=== PATIENT | female | born 1975 | race African-American/Black ===

== ENCOUNTER → 2016-11-24 | Outpatient (CLI) | payer OTHER ==
[~2016-11-24] VITALS: Ht 165.1 cm; Wt 102.5 kg
[~2016-11-24] MED LIST: COZAAR 50 MG TA50 M2 PO; DICLOFENAC SOD50 M1 PO; FLEXERIL PO; GLUCOPHAGE XR500 MG PO; HYDROCHLOROTH12.5 M1 PO; HYDROCODON-ACE1 EACH PO; HYDROCODONE-AP1 EAC6 PO; LIPITOR 20 MG T20 M1 PO; MELOXICAM7.5 MG PO; NUCYNTA50 MG PO; PHENERGAN 25 MG25 M1 PO; RIZATRIPTAN5 M1 PO; TRAMADOL 50 MG50 MG PO; VENTOLIN HFA 1818 GM INH; VITAMIN D 5050000 I1; VITAMIN D 5050000 I1 PO
--- NOTE | ~2016-11-24 | HPC ---
[address] [place] [address] PAIN MANAGEMENT CONSULTATION Name: WILLARD ACUÑAN Room #: REG MARVIN Iftikhar#: [id number] Admission: 11/24/16 Attend Phys: Abner Pickens DO Discharge: Date of : 77 Report #: [id number] THIS REPORT FOR: //name// CC: Abner Arvizu [facility] DATE OF SERVICE: 11/24/2016 REFERRING PHYSICIAN: Dr. Lennox Arvizu. CHIEF COMPLAINT: Bilateral foot pain. HISTORY OF PRESENT ILLNESS: As you know, the patient is a 40-year-old female who returns today in followup visit with continued bilateral foot pain. She was originally referred to our service by her educational technology coordinator, Dr. Arvizu for ongoing foot pain. She apparently has undergone surgery, but this is yet to improve symptoms of pain she has been experiencing. She continues to utilize Nucynta on a p.r.n. basis, returning in followup visit requesting refill of this medication. The last visit, we saw the patient was 05/25/2016. She states she has been in her typical state of health with no changes in her medical history. She is denying side effects to medication, does find the medication beneficial when necessary. ALLERGIES: CEPHALEXIN. CURRENT MEDICATIONS: Vitamin D 50,000 units per week, albuterol 2 puffs q. 4 hours p.r.n., metformin XR 500 mg once a day, rizatriptan 5 mg p.r.n., Nucynta 50 mg every 8 hours p.r.n. for pain, cyclobenzaprine 10 mg p.r.n., losartan 50 mg per day, promethazine 25 mg twice a day p.r.n. nausea, vomiting. PHYSICAL EXAMINATION: VITAL SIGNS: Blood pressure 144/99, pulse 100, respiratory rate 16, unlabored, patient 99% on room air. Height 5 feet 5 inches tall, weight 226 pounds, BMI calculated at 37.6. GENERAL: Well-developed, well-nourished, well-hydrated, morbidly obese 40-year-old female appearing her stated age. Pain is rated around 6-7/10. HEENT: Normocephalic, atraumatic. Pupils equal, round, reactive to light. Extraocular muscles are intact. Sclerae nonicteric without injection. NEUROLOGIC: Cranial nerves 2-12 are grossly intact. Speech fluent. EXTREMITIES: Show no clubbing, no cyanosis, no edema. MUSCULOSKELETAL: The patient has palpatory tenderness over the left foot greater than the right. There does not appear to be any changes in the skin color or texture. Temperature is equal when comparing right lower extremity to the left. Weightbearing causes intensification of left heel [place] [address] PAIN MANAGEMENT CONSULTATION Name: WILLARD ACUÑAN Room #: REG [facility] Iftikhar#: [id number] Admission: 11/24/16 Attend Phys: Abner Pickens DO Discharge: Date of : 77 Report #: [id number] ASSESSMENT: 1. Bilateral foot pain. 2. Plantar fasciitis. 3. Chronic intractable pain. PLAN: 1. The patient has returned today in followup visit requesting refill on medications. The patient has not been to our clinic since April 2016. She is taking the Nucynta on an as needed basis and feels it is beneficial. The patient had a very long discussion today about ongoing therapy. At present, the patient has been utilizing her medications appropriately, though I believe that continuation of this therapy may be limited in its capability of providing pain. I strongly suggest the patient return to see her educational technology coordinator for her evaluation. Pain that she is experiencing is not complex regional pain syndrome. This appears to be a mechanical issue and should be amenable to orthotic changes and even potential surgical options. I do strongly suggest she return to see Dr. Arvizu in regards to bilateral foot pain. 2. The patient had a very long discussion about the fact that a good portion of her pain is mechanical in origin. Based on this, I would recommend the patient begin a concerted effort at weight loss. As you are aware, the patient has a BMI of 37.6, weighing 226 pounds, standing 5 feet 5 tall. This extra weight is causing greater strain upon the bilateral feet and this is exacerbating her symptoms. I have discussed this with the patient today. Weight loss is a major priority in this patient's case reducing her weight will reduce the strain on the feet and reduce her overall pain. The patient's optimal weight should be somewhere between 120 and 140. That is a 80 pound weight loss to reach a typical BMI for a 5 feet 5 individual. The patient needs to make a concerted effort at weight reduction to reduce her overall pain. 3. The patient was provided a prescription of Nucynta 50 mg dose 1 tab p.o. q. 12 hours p.r.n. for pain, I have given the patient #40, releases of today, 4 weeks from today and 8 weeks from today, 3 months' worth of medication. The patient was advised to take the medication only as directed, not to take the medication prophylactically. 4. We will see the patient back in followup visit in 3 months. Again, we strongly suggest a followup with Dr. Arvizu and a concerted effort at weight loss, both of which should provide improved analgesia. By: [id number] Abner Pickens DO /nt
[2016-11-24 09:17] VITALS: BP 144/99
== END | disposition home or self-care (01) ==
LOC: PAIN 07:17
DX: M79.672 Pain in left foot (principal); M79.671 Pain in right foot; M72.2 Plantar fascial fibromatosis; G89.29 Other chronic pain

== ENCOUNTER → 2017-03-22 | Outpatient (CLI) | payer OTHER ==
[~2017-03-22] VITALS: Ht 165.1 cm; Wt 102.1 kg
--- NOTE | ~2017-03-22 | HPC ---
[facility] [place] [address] PAIN MANAGEMENT CONSULTATION Name: GUADALUPE ACUÑA Room #: REG MARVIN Nunez.#: [id number] Admission: 03/22/17 Attend Phys: Abner Pickens DO Discharge: Date of : 77 Report #: [id number] THIS REPORT FOR: //name// CC: Abner Arvizu Leah DATE OF SERVICE: 03/22/2017 DATE OF SERVICE: 03/22/2017. REFERRING PHYSICIAN: Dr. Lennox Arvizu. CHIEF COMPLAINT: Bilateral foot pain. HISTORY OF PRESENT ILLNESS: As you know, the patient is a pleasant 41-year-old female who returns today in followup visit with continued bilateral foot pain. The patient was referred to our service by her crosscutter, Dr. Arvizu for ongoing foot pain despite surgical interventions. She returns today in followup visit stating pain level of 5/10 today, states majority of the pain is located on the left plantar surface, but there is equal amount of pain on the right plantar surface. The patient indicates pain is chronic. She describes pain as sharp, exacerbated with standing, walking, improves with sitting, heat, cold compresses and medications. She returns today in followup visit for medication management, stating she is receiving good benefit with its use. ALLERGIES: CEPHALEXIN, BACTRIM. CURRENT MEDICATIONS: Nucynta, vitamin D, hydrocodone, albuterol, promethazine, losartan, cyclobenzaprine, rizatriptan and metformin. SOCIAL HISTORY: The patient denies tobacco, alcohol, IV or illicit drug use. She is working. She is unaccompanied today. IMAGING: No new imaging available. PHYSICAL EXAMINATION: VITAL SIGNS: Blood pressure 132/91, pulse 98, respiratory rate 14, unlabored. The patient is 98% on room air, height 5 feet 5 inches tall, weight 225 pounds, BMI calculated 37.4. GENERAL: Well-developed, well-nourished, well-hydrated, morbidly obese 41-year-old female appearing stated age. Pain is rated at 5-10. HEENT: Normocephalic, atraumatic. Pupils equal, round, reactive to light. Extraocular muscles are intact. Speech is fluent. EXTREMITIES: Show no clubbing, no cyanosis, no edema. MUSCULOSKELETAL: There is again palpatory tenderness over the plantar surface [address] [address] PAIN MANAGEMENT CONSULTATION Name: GUADALUPE ACUÑA Room #: REG MARVIN Iftikhar#: [id number] Admission: 03/22/17 Attend Phys: Abner Pickens DO Discharge: Date of : 77 Report #: [id number] of the left foot greater than right. Weightbearing causes intensification of bilateral foot pain. There is no noticeable changes in temperature or skin color that might indicate complex regional pain syndrome. ASSESSMENT: 1. Bilateral foot pain. 2. Plantar fasciitis. 3. Chronic intractable pain. PLAN: 1. The patient returns today in followup visit for medication management. The patient reports good efficacy with medications and wishes to continue the current therapy. She indicates pain level lumbar 5/10 when she is active, pain is better, improves with rest, relaxation and these medications provided to our services. 2. The patient was provided a prescription of Nucynta 50 mg dose 1 tab p.o. b.i.d. I have given the patient #40 tablets, this is a month worth of medication. She will take these as needed. She is given prescriptions of today, 4 weeks from today, 8 weeks from today. 3. The patient will return to our clinic in 3 months for medication therapy, earlier for interventional treatments. <ELECTRONICALLY SIGNED> By: Abner Pickens DO 03/25/17 1359 [id number] Abner Pickens DO /nt
[2017-03-22 08:22] VITALS: BP 132/91
== END | disposition home or self-care (01) ==
LOC: PAIN 07:02
DX: M79.672 Pain in left foot (principal); M79.671 Pain in right foot; G89.29 Other chronic pain; M72.2 Plantar fascial fibromatosis

== ENCOUNTER → 2017-08-24 | Outpatient (CLI) | payer OTHER ==
[~2017-08-24] VITALS: Ht 165.1 cm; Wt 106.1 kg
--- NOTE | ~2017-08-24 | HPC ---
[facility] [address] [place] [address] PAIN MANAGEMENT CONSULTATION Name: WILLARD ACUÑAN Room #: REG MARVIN Iftikhar#: [id number] Admission: 08/24/17 Attend Phys: Abner Pickens DO Discharge: Date of : 77 Report #: [id number] THIS REPORT FOR: //name// CC: Abner Arvizu DPM DATE OF SERVICE: 08/24/2017 CHIEF COMPLAINT: Bilateral foot pain. HISTORY OF PRESENT ILLNESS: As you know, the patient is a very pleasant 41-year-old female who returns today in followup visit with continued bilateral foot pain. She was referred originally to our service by her file system installer, Dr. Arvizu, for ongoing foot pain despite multiple surgical interventions. She returns today stating the cold weather has exacerbated symptoms and she has been taking her medication more frequently. The last time we saw the patient was in February and she was doing well at that time, but the cold has made her pain worse; now level of 7/10; states pain is exacerbated with standing and walking; improves with sitting and heat as well as medications. She returns today in followup visit, denying any new injury or new trauma to her feet that may have led to increasing pain. She is denying any changes in medical history since our last visit. ALLERGIES: CEPHALEXIN AND BACTRIM. CURRENT MEDICATIONS: Nucynta 50 mg twice a day, vitamin D 50,000 units a week, albuterol 2 puffs q. 4 hours p.r.n., metformin XR 500 mg once a day, rizatriptan 5 mg p.r.n., losartan 50 mg per day, Phenergan 25 mg p.r.n. SOCIAL HISTORY: The patient denies tobacco, alcohol, IV or illicit drug use. She is working, not receiving workmen's compensation, unaccompanied today. IMAGING: No new imaging is available. PHYSICAL EXAMINATION: VITAL SIGNS: Blood pressure 140/92, pulse 83, respiratory rate 20 and unlabored. The patient is 100% on room air. Height 5 feet 5 inches tall, weight 234 pounds, BMI calculated at 38.9. GENERAL: Well-developed, well-nourished, well-hydrated exogenously obese 41-year-old female appearing her stated age, placing current pain score at 7/10. HEENT: Normocephalic, atraumatic. Pupils equal, round, reactive to light. Speech remains fluent. EXTREMITIES: Show no clubbing, no cyanosis, no edema. MUSCULOSKELETAL: Lower extremity strength appears equal and symmetrical 5/5, intact to light touch from L1 through S2 dermatomes. Weightbearing causes [address] [address] PAIN MANAGEMENT CONSULTATION Name: WILLARD ACUÑAN Room #: REG CLBryant Nunez.#: [id number] Admission: 08/24/17 Attend Phys: Abner Pickens DO Discharge: Date of : 77 Report #: [id number] intensification of bilateral foot pain, mainly across the mid portion of the foot. No noticeable changes in skin color or texture again today. Plantar surface appears tender to palpation, left greater than right. ASSESSMENT: 1. Bilateral foot pain. 2. Bilateral plantar fasciitis. 3. Chronic intractable pain. PLAN: 1. The patient has returned today in followup visit having noted increasing pain with cold temperatures that began earlier in July. The patient indicates pain has intensified with these cold temperatures and more activities at home including the holidays. She has returned requesting refill on medications. She was last seen in our clinic in February and received 3 months' worth of medication, may those last all the way until this date. She returns today requesting refill of medications stating she is receiving good benefit when needed. 2. The patient was provided prescription of Nucynta 50 mg dose 1 tab p.o. b.i.d., I have given the patient #60 tablets, 1 month worth of medication. I have given her prescriptions for release of today, 4 weeks from today, 8 weeks from today for a total of 3 months' worth of therapy. 3. The patient was advised to utilize medication as she has prior, utilizing it only for when pain is intensified, not to rely on the medication prophylactically. 4. We will see the patient back in followup visit in approximately 3 months for ongoing medical therapy. We are pleased to see she has done well with Nucynta and we will continue this therapy. <ELECTRONICALLY SIGNED> By: Abner Pickens DO 08/26/17 1110 [id number] Abner Pickens DO /nt
[2017-08-24 08:12] VITALS: BP 140/92
== END ==
LOC: PAIN 06:34
DX: M72.2 Plantar fascial fibromatosis (principal); G89.29 Other chronic pain

== ENCOUNTER → 2018-04-19 | Outpatient (CLI) | payer OTHER ==
[~2018-04-19] VITALS: Ht 165.1 cm; Wt 107.7 kg
--- NOTE | ~2018-04-19 | HPC ---
[facility] [place] [address] PAIN MANAGEMENT CONSULTATION Name: WILLARD ACUÑAN Room #: REG MARVIN CaitlynAdan.#: [id number] Admission: 04/19/18 Attend Phys: Abner Pickens DO Discharge: Date of : 77 Report #: [id number] THIS REPORT FOR: //name// CC: Abner Arvizu Leah DATE OF SERVICE: 04/19/2018 CHIEF COMPLAINT: Bilateral foot pain. HISTORY OF PRESENT ILLNESS: As you know, the patient is a very pleasant 42-year-old female who returns today in followup visit with continued bilateral foot pain. She was originally referred to our service by her criminal justice department chair, Dr. Arvizu for ongoing foot pain despite multiple surgical interventions. We started the patient on medication management in the form of tapentadol, which has been very beneficial. She is indicating pain typically is rated around 5/10 at its worst, which is a significant improvement of about 60-70%. She returns today in followup visit requesting refill on medications. She states her pain is sharp and throbbing. States pain is exacerbated with standing and walking, improves with sitting and heat compresses. She returns for medication management. ALLERGIES: CEPHALEXIN AND BACTRIM. CURRENT MEDICATIONS: Nucynta 50 mg twice a day, vitamin D 50,000 units per week, albuterol 2 puffs q. 4 hours p.r.n., metformin XR 500 mg once a day, rizatriptan 5 mg p.r.n., losartan 50 mg per day and Phenergan 25 mg per day. SOCIAL HISTORY: The patient denies tobacco, alcohol, IV or illicit drug use. She is working, not receiving workmen's compensation, unaccompanied today. IMAGING: No new imaging available. PHYSICAL EXAMINATION: VITAL SIGNS: Blood pressure 138/96, pulse is 97, respiratory rate 18 and unlabored. The patient is 98% on room air. Height 5 feet 5 inches tall, weight 237.4 pounds, BMI calculated 39.5. GENERAL: Well-developed, well-nourished, well-hydrated 42-year-old female appearing her stated age. She is placing pain score today at around 5/10. HEENT: Normocephalic and atraumatic. Pupils are equal, round and reactive to light. EXTREMITIES: Show no clubbing, no cyanosis and no edema. MUSCULOSKELETAL: Lower extremity strength is symmetrical 5/5, intact to light touch from L1 through S2 dermatomes. Rising from seated position cause intensification of bilateral foot pain. Walking any distance causes increase in [facility] [address] [place] [address] PAIN MANAGEMENT CONSULTATION Name: GUADALUPE ACUÑA Room #: REG MARVIN Buitrago#: [id number] Admission: 04/19/18 Attend Phys: Abner Pickens DO Discharge: Date of : 77 Report #: [id number] bilateral foot pain mainly across the mid portion of the foot. No noticeable skin color changes or texture changes or nail growth changes that would be concerning of complex regional pain syndrome. ASSESSMENT: 1. Bilateral foot pain. 2. Bilateral plantar fasciitis. 3. Chronic intractable pain. PLAN: 1. The patient returns today in followup visit indicating medications are working beneficially for pain control. She is now placing pain score 5/10 at the worst. This is a significant improvement from our initial visit of 10/10. She is very pleased with response to medication this in conjunction with her new shoes have been significantly effective in improving overall pain. She is continuing to wear the shoes on a daily basis and is noticing good benefit from plantar fascitis standpoint and from a padding standpoint reducing her overall pain. We encouraged the patient to utilize these shoes as much as possible and we will refill her medications today. 2. The patient was provided a prescription of tramadol 50 mg dose 1 tab p.o. b.i.d., #60, releases of today, 4 weeks from today, 8 weeks from today, 3 months' worth of medication. The patient denies any side effects to medication. 3. We reviewed the fact that opiate medications are being used to provide analgesia adequate to support activities of daily living, not attempting to achieve a specific pain score on the 0-10 Visual Analog Scale. The current opiate medications are providing sufficient analgesia to allow the patient to participate in activities of daily living. The patient is not exhibiting any aberrant behavior suggestive of drug diversion. The patient is not having any adverse reactions to medications. The patient is not suffering from daytime somnolence or mental acuity changes. The patient is managing opiate-induced constipation with appropriate [id number]-enzxqpx agents and dietary considerations. The patient was counseled on concern for caution with operating a motor vehicle while using opiate medications. A physical exam was performed and the patient's functional status was evaluated. All patients with back pain were advised against the bed rest greater than 4 days and were advised to return to normal activities. Pain score assessment was noted and the treatment plan was reviewed with the patient. All current medications, both prescribed and OTC were reviewed and reconciled on the electronic medical record. Tobacco screening was accomplished and smoking cessation was advised when indicated. BMI was noted and diet/exercise modification was recommended for all patients following outside normal parameters. I reviewed with the patient today their responsibilities to safeguard prescription medications, reviewed their responsibility to utilize medications only as prescribed by the physician. They are to seek and receive pain medications only from 1 physician group ([facility]). They are to use [facility] [address] [place] [address] PAIN MANAGEMENT CONSULTATION Name: WILLARD ACUÑAN Room #: REG MARVIN Iftikhar#: [id number] Admission: 04/19/18 Attend Phys: Abner Pickens DO Discharge: Date of : 77 Report #: [id number] 1 pharmacy and keep the clinic informed if they change pharmacies. Their responsibilities include making followup visits in a timely fashion and to avoid abrupt discontinuation of medication usage. Their responsibilities further include bringing their medications (bottles from the pharmacy with residual pills) to the visit for possible confirmation of pill counts and the patient understands it is their responsibility to submit to random drug screens to ensure both that the medications prescribed are present, and that no other controlled substances are present. All prescriptions provided today were generated electronically. 4. The patient will return to our clinic in 3 months for medication therapy. By: [id number] Abner Pickens DO /nt
[2018-04-19 14:26] VITALS: BP 138/96
== END ==
LOC: PAIN 08:01
DX: M79.671 Pain in right foot (principal); M79.672 Pain in left foot; M72.2 Plantar fascial fibromatosis; G89.4 Chronic pain syndrome; Z79.899 Other long term (current) drug therapy

== ENCOUNTER → 2018-08-08 | Outpatient (CLI) | payer OTHER ==
[~2018-08-08] VITALS: Ht 165.1 cm; Wt 106.8 kg
--- NOTE | ~2018-08-08 | HPC ---
[facility] [place] [address] PAIN MANAGEMENT CONSULTATION Name: GUADALUPE ACUÑA Room #: REG MARVIN Nunez.#: [id number] Admission: 08/08/18 Attend Phys: Abner Pickens DO Discharge: Date of : 77 Report #: [id number] THIS REPORT FOR: //name// CC: Abner Arvizu DPM DATE OF SERVICE: 08/08/2018 PRIMARY CARE PHYSICIAN: Dr. Luciana Bennett. CHIEF COMPLAINT: Bilateral foot pain. HISTORY OF PRESENT ILLNESS: As you know, the patient is a very pleasant 42-year-old female returning in followup visit with continued bilateral foot pain. She was referred to our clinic by her space control agent after surgical intervention was ineffective at alleviating her bilateral foot pain. Apparently, there was difficulty with obtaining reinsertion of the plantar fascia based on the patient's recollection. The patient was started on medication management with the idea that ultimately surgical options would improve her symptoms and she would be able to come off medication. Unfortunately, the patient indicates that there is no surgical option from the Podiatry standpoint. She does have an appointment with orthopedic surgeons to discuss her case further. She returns today in followup visit requesting refill on medication. She is placing pain score 5/10, states her pain is sharp and throbbing in sensation, exacerbated with standing, walking, cold weather and damp weather, improves with heat and cold compresses, sitting and medications. She returns requesting refill on medications, denying any side effects with their use. ALLERGIES: CEPHALEXIN AND BACTRIM. CURRENT MEDICATIONS: Nucynta 50 mg p.o. b.i.d. p.r.n. pain, albuterol 2 puffs q. 4 hours p.r.n., metformin 500 mg once a day, rizatriptan 5 mg p.r.n. migraines, losartan 50 mg per day, promethazine 25 mg per day. SOCIAL HISTORY: The patient denies tobacco, alcohol, IV or illicit drug use. She is working, not receiving workmen's compensation, unaccompanied today. IMAGING: No new imaging available. PHYSICAL EXAMINATION: VITAL SIGNS: Blood pressure 114/92, pulse 94, respiratory rate 16 and unlabored. The patient is 100% on room air. Height 5 feet 5 inches tall, weight 235.4 pounds, BMI calculated 39.2. [address] [address] PAIN MANAGEMENT CONSULTATION Name: GUADALUPE ACUÑA Room #: REG CLI [facility]#: [id number] Admission: 08/08/18 Attend Phys: Abner Pickens DO Discharge: Date of : 77 Report #: [id number] GENERAL: Well-developed, well-nourished, well-hydrated exogenously obese 42-year-old female appearing stated age, placing current pain score at 5/10. HEENT: Normocephalic, atraumatic. Pupils equal, round, reactive to light. EXTREMITIES: Show no clubbing, no cyanosis, and no edema. MUSCULOSKELETAL: Lower extremity strength symmetrical at 5/5, intact to light touch from L1 through S2 dermatomes. Rising from a seated position once again intensifies bilateral foot pain and walking any distance causes increase in overall pain. The pain is noted in mid portion of the foot. ASSESSMENT: 1. Bilateral foot pain. 2. Bilateral plantar fasciitis. 3. Chronic intractable pain. PLAN: 1. The patient returns today in followup visit requesting refill on medications. She feels medications are working beneficially for pain control. She is denying side effects of sleepiness, disorientation, confusion, mental slowing or constipation with their use. She returns requesting refill on medications at this time. We reviewed the fact that opiate medications are being used to provide analgesia adequate to support activities of daily living, not attempting to achieve a specific pain score on the 0-10 Visual Analog Scale. The current opiate medications are providing sufficient analgesia to allow the patient to participate in activities of daily living. The patient is not exhibiting any aberrant behavior suggestive of drug diversion. The patient is not having any adverse reactions to medications. The patient is not suffering from daytime somnolence or mental acuity changes. The patient is managing opiate-induced constipation with appropriate upjy-npw-pbwprqu agents and dietary considerations. The patient was counseled on concern for caution with operating a motor vehicle while using opiate medications. A physical exam was performed and the patient's functional status was evaluated. All patients with back pain were advised against the bed rest greater than 4 days and were advised to return to normal activities. Pain score assessment was noted and the treatment plan was reviewed with the patient. All current medications, both prescribed and OTC were reviewed and reconciled on the electronic medical record. Tobacco screening was accomplished and smoking cessation was advised when indicated. BMI was noted and diet/exercise modification was recommended for all patients following outside normal parameters. I reviewed with the patient today their responsibilities to safeguard prescription medications, reviewed their responsibility to utilize medications only as prescribed by the physician. They are to seek and receive pain [address] [address] PAIN MANAGEMENT CONSULTATION Name: GUADALUPE ACUÑA Room #: REG MARVIN Buitrago#: [id number] Admission: 08/08/18 Attend Phys: Abner Pickens DO Discharge: Date of : 77 Report #: [id number] medications only from 1 physician group ( [facility]). They are to use 1 pharmacy and keep the clinic informed if they change pharmacies. Their responsibilities include making followup visits in a timely fashion and to avoid abrupt discontinuation of medication usage. Their responsibilities further include bringing their medications (bottles from the pharmacy with residual pills) to the visit for possible confirmation of pill counts and the patient understands it is their responsibility to submit to random drug screens to ensure both that the medications prescribed are present, and that no other controlled substances are present. All prescriptions provided today were generated electronically. 2. The patient was provided prescription of Nucynta 50 mg dose 1 tab p.o. b.i.d. I have given the patient #60 tablets, releasing today, 4 weeks from today, 8 weeks from today, 3 months' worth of medication. 3. The patient will contact our clinic once she has evaluation from Orthopedics in regards to her bilateral foot pain and possible surgical options. Apparently, she has discussed this with her space control agent who indicates there are no further surgeries they can perform or treatments that they can perform that will improve symptoms. She is going to be following up with Orthopedic Surgery and will contact our clinic once she has completed this consultation. 4. We will see the patient back in followup visit in 3 months for ongoing medical therapy if necessary. By: [id number] Abner Pickens, DO /nt
== END ==
LOC: PAIN 06:53
DX: M79.671 Pain in right foot (principal); M79.672 Pain in left foot; M72.2 Plantar fascial fibromatosis; G89.4 Chronic pain syndrome; Z79.899 Other long term (current) drug therapy

== ENCOUNTER → 2019-01-03 | Outpatient (CLI) | payer OTHER ==
[~2019-01-03] VITALS: Ht 165.1 cm; Wt 108.7 kg
[2019-01-03 09:27] VITALS: BP 150/90
--- NOTE | 2019-01-03 09:58 | NUR ---
Pain Clinic Assessment: 1. History of Osteoarthritis: Not Applicable History of Rheumatoid Arthritis: Not Applicable 2. Height: 5 ft. 5 in. 165.1 cm. Weight: 239.6 lb. oz. 108.682 kg. Patient's BMI: 39.9 3. Vital Signs: BP: 150/90 Pulse: 94 Resp: 20 Temp: 02 Sat: 99 ECG Mon: 4. Pain Intensity: 9 5. Fall Risk: Dizziness: N Needs help standing or walking: N Fallen in the last 3 months: N Fall risk comments: 6. Patient on Blood Thinner: None 7. History of Hypertension: Y 8. Opioid Therapy greater than 6 weeks: Y Opiate Contract Signed: 08/24/17 9. Risk Assessment Tool Provided: low risk 10. Functional Assessment Tool: 11. Recreational Drug Use: Never Drug Type: Tobacco Use: Never Smoker Tobacco Type: Amount or Packs/day: How Many Years: Alcohol Use: Yes Frequency: Quant:
--- NOTE | 2019-01-09 07:41 | HPC ---
[facility] [place] [address] PAIN MANAGEMENT CONSULTATION Name: GUADALUPE ACUÑA Room #: REG MARVIN CaitlynAdan.#: [id number] Admission: 01/03/19 ������������������ Attend Phys: Abner Pickens DO Discharge: ������������������ Date of : 77 Report #: [id number] THIS REPORT FOR: //name// CC: Abner AVALOS DATE OF SERVICE: 01/03/2019 CHIEF COMPLAINT: Bilateral foot pain. HISTORY OF PRESENT ILLNESS: As you know, the patient is a very pleasant 43-year-old female who returns today in followup visit with continued bilateral foot pain. She was originally referred to our service by her contact lens technician, Dr. Arvizu, for ongoing foot pain despite multiple surgical interventions. She is placing pain today at 9/10. She states her pain is exacerbated with weightbearing and weather changes. She returns today in followup visit stating she has an appointment with Orthopedics next week to discuss possible surgical intervention, but at this time is requesting refill on medications. She feels her medications are working well for pain control despite the elevated 9/10 pain level today. She indicates that level is higher as she has run out of her medications and has nothing to treat her ongoing pain at present. She returns today for refill of medications. ALLERGIES: CEPHALEXIN, BACTRIM. CURRENT MEDICATIONS: Nucynta 50 mg b.i.d., hydrocodone 5/325 one tab every 8 hours p.r.n. pain, albuterol 2 puffs q. 4 hours p.r.n., metformin 500 mg 1 tab p.o. q.a.m., rizatriptan 5 mg p.r.n., losartan 50 mg per day, promethazine 25 mg p.r.n. nausea. SOCIAL HISTORY: The patient denies tobacco, alcohol, IV or illicit drug use. She is working, not receiving workmen's compensation, unaccompanied today. IMAGING: No new imaging available. PHYSICAL EXAMINATION: VITAL SIGNS: Blood pressure 150/90, pulse 94, respiratory rate 20 and unlabored. The patient is 99% on room air. Height 5 feet 5 inches tall, weight 239.6 pounds, BMI calculated at 39.9. GENERAL: Well-developed, well-nourished, well-hydrated, exogenously obese 43-year-old female appearing her stated age. She is placing her pain score today at 9/10. HEENT: Normocephalic, atraumatic. Pupils are equal, round, and reactive to light. Extraocular muscles are intact. [address] [address] PAIN MANAGEMENT CONSULTATION Name: GUADALUPE ACUÑA [facility] [id number] Admission: 01/03/19 ������������������ Attend Phys: Abner Pickens DO Discharge: ������������������ Date of : 77 Report #: [id number] EXTREMITIES: Show no clubbing, no cyanosis and no edema. MUSCULOSKELETAL: There are no noted changes in the foot. It is difficult to see the incisions from previous surgeries. She has pain arising from a seated position bilaterally, right greater than left. Walking any distance causes increase in pain of the bilateral feet, mainly across the mid portion of the foot itself. There are no skin color changes or texture changes or nail changes or even hair changes that are concerning of complex regional pain syndrome. ASSESSMENT: 1. Bilateral foot pain. 2. Bilateral plantar fasciitis. 3. Chronic intractable pain. PLAN: 1. The patient returns today in followup visit for continuation of medication therapy. She feels medications are working well, but has been increasing pain due to changes in weather. She states this plus weightbearing exacerbates symptoms. The patient has gained some weight since her last visit in July. She was 235 pounds at that visit in July. She now weighs 239 pounds. This cannot help the bilateral foot pain she is experiencing. We have discussed with the patient trying to find ways to reduce weight, which would reduce any strain upon the feet and potentially reduce overall pain. She is trying to lose weight, but due to the bilateral foot pain, she is unable to participate in the activities. She would love to participate in. She will continue to try to make adjustments in diet and hopes of improving her weight. 2. We have agreed to increase the patient's Nucynta from 50 mg b.i.d. to 50 mg t.i.d. for the next couple of months for pain control. We will make adjustments in the medication today. 3. We reviewed the fact that opiate medications are being used to provide analgesia adequate to support activities of daily living, not attempting to achieve a specific pain score on the 0-10 Visual Analog Scale. The current opiate medications are providing sufficient analgesia to allow the patient to participate in activities of daily living. The patient is not exhibiting any aberrant behavior suggestive of drug diversion. The patient is not having any adverse reactions to medications. The patient is not suffering from daytime somnolence or mental acuity changes. The patient is managing opiate-induced constipation with appropriate krfw-ide-zmohdgo agents and dietary considerations. The patient was counseled on concern for caution with operating a motor vehicle while using opiate medications. A physical exam was performed and the patient's functional status was evaluated. All patients with back pain were advised against the bed rest greater than 4 days and were advised to return to normal activities. Pain score assessment was noted and the treatment plan was reviewed with the patient. All current medications, both prescribed and OTC were reviewed and reconciled on the electronic medical record. Tobacco screening was accomplished and smoking [facility] [address] [place] [address] PAIN MANAGEMENT CONSULTATION Name: GUADALUPE ACUÑA Room #: REG MARVIN M.R.#: [id number] Admission: 01/03/19 ������������������ Attend Phys: Abner Pickens DO Discharge: ������������������ Date of : 77 Report #: [id number] cessation was advised when indicated. BMI was noted and diet/exercise modification was recommended for all patients following outside normal parameters. I reviewed with the patient today their responsibilities to safeguard prescription medications, reviewed their responsibility to utilize medications only as prescribed by the physician. They are to seek and receive pain medications only from 1 physician group ( [facility]). They are to use 1 pharmacy and keep the clinic informed if they change pharmacies. Their responsibilities include making followup visits in a timely fashion and to avoid abrupt discontinuation of medication usage. Their responsibilities further include bringing their medications (bottles from the pharmacy with residual pills) to the visit for possible confirmation of pill counts and the patient understands it is their responsibility to submit to random drug screens to ensure both that the medications prescribed are present, and that no other controlled substances are present. All prescriptions provided today were generated electronically. 4. The patient was provided prescription of Nucynta 50 mg dose 1 tab p.o. t.i.d. I have given the patient #90 tablets, releasing today, 4 weeks from today, 8 weeks from today, 3 months' worth of medication. The patient was advised to take this medication only when pain is intolerable, not to rely on the medication prophylactically. 5. The patient will contact our clinic after she has seen her orthopedic surgeon to advise us whether or not surgical options are going to be entertained. She sees the orthopedic surgeon next week and she will contact our clinic after that to advise us of the treatment plan. 6. We will see the patient back in followup visit in 3 months unless plans do change from a surgical standpoint and we will adjust our treatment options based on those recommendations. ��������������������������������������������� <ELECTRONICALLY SIGNED> ���������������������������������������� By: Abner Pickens DO ��������������������������������������������� 01/09/19 0741 [id number] Abner Pickens DO /nt
== END ==
LOC: PAIN 06:44
DX: M72.2 Plantar fascial fibromatosis (principal); G89.4 Chronic pain syndrome; M79.671 Pain in right foot; M79.672 Pain in left foot; Z79.899 Other long term (current) drug therapy

== ENCOUNTER → 2019-05-23 | Outpatient (CLI) | payer OTHER ==
[~2019-05-23] VITALS: Ht 165.1 cm; Wt 110.0 kg
[2019-05-23 09:35] VITALS: BP 142/96
--- NOTE | 2019-05-23 09:44 | NUR ---
Pain Clinic Assessment: 1. History of Osteoarthritis: Not Applicable History of Rheumatoid Arthritis: Not Applicable 2. Height: 5 ft. 5 in. 165.1 cm. Weight: 242.6 lb. oz. 110.043 kg. Patient's BMI: 40.4 3. Vital Signs: BP: 142/96 Pulse: 91 Resp: 18 Temp: 02 Sat: 96 ECG Mon: 4. Pain Intensity: 6 5. Fall Risk: Dizziness: N Needs help standing or walking: N Fallen in the last 3 months: N Fall risk comments: 6. Patient on Blood Thinner: None 7. History of Hypertension: Y 8. Opioid Therapy greater than 6 weeks: Y Opiate Contract Signed: 08/24/17 9. Risk Assessment Tool Provided: LOW RISK 0/3 10. Functional Assessment Tool: / 11. Recreational Drug Use: Never Drug Type: Tobacco Use: Never Smoker Tobacco Type: Amount or Packs/day: How Many Years: Alcohol Use: Yes Frequency: Weekly Quant: 2
--- NOTE | 2019-05-24 11:22 | HPC ---
[facility] [address] [place] [address] PAIN MANAGEMENT CONSULTATION Name: WILLARD ACUÑAN Room #: REG MARVIN Enrique.#: [id number] Admission: 05/23/19 Attend Phys: Marija Redd Discharge: Date of : 77 Report #: [id number] THIS REPORT FOR: //name// CC: Mairja Bennett DATE OF SERVICE: 05/23/2019 CHIEF COMPLAINT: Bilateral foot pain. HISTORY OF PRESENT ILLNESS: This is a 43-year-old female who returns to the pain clinic today for her continued bilateral foot pain and for medication refills. She does report that she is going to have surgery in July on her left foot by Dr. Trotter. She is rating a pain score of 6/10 today. It is a throbbing, sharp pain, worse with walking and standing, but better with sitting, using heat and medications. She denies any problems with constipation because she does take her medicines very sparingly. Her last visit was in December with our office, so she has made her 3 months of medications, last longerthen 3 months. The patient does report that she tries to not take them on a daily basis, only when her pain does increase significantly. ALLERGIES: KEFLEX, BACTRIM. CURRENT LIST OF MEDICATIONS: Nucynta 50 mg p.r.n., hydrocodone p.r.n., Ventolin inhaler, metformin 500 daily, losartan 50 mg daily and Phenergan p.r.n. PQRS: 1. She denies history of osteoarthritis or rheumatoid arthritis. 2. Height is 5 feet 5 inches, weight is 242, BMI is 40. 3. Vital signs 142/96, pulse is 91, respirations 18, oxygen sat is 96. 4. Pain score is 6/10. 5. Denies dizziness, does not need help walking or standing, has not fallen in the last 3 months. 6. The patient is not on any blood thinners, does take medicine for hypertension. 7. Opioid therapy is greater than 6 weeks; therefore, an opiate signed contract is on the chart. Risk assessment tool is low. Functional assessment is 56/70. 8. Recreational drug use, she denies. She is not a smoker and drinks alcoholic beverages occasionally. We did check the prescription monitoring system. The patient is filling appropriately. We will check a random urine drug screen on her today. PHYSICAL EXAMINATION: GENERAL: This is a well-developed, well-nourished, exogenous obese 43-year-old female who appears her stated age, placing her current pain score 6/10[place] [address] PAIN MANAGEMENT CONSULTATION Name: GUADALUPE ACUÑA Room #: REG Bryant B[facility]#: [id number] Admission: 05/23/19 Attend Phys: Marija Redd Discharge: Date of : 77 Report #: [id number] HEENT: Normocephalic, atraumatic. Pupils equal, round and reactive to light. Mucous membranes are moist. EXTREMITIES: No clubbing, no cyanosis, no edema. MUSCULOSKELETAL: Pain in her feet arises from a seated position bilaterally, greater on the left than the right today. Walking any distance causes increased pain in her bilateral feet. No skin color changes or texture noted today. ASSESSMENT: 1. Bilateral foot pain. 2. Bilateral plantar fasciitis. 3. Chronic intractable pain. We reviewed the fact that opiate medications are being used to provide analgesia adequate to support activities of daily living, not attempting to achieve a specific pain score on the 0-10 Visual Analog Scale. The current opiate medications are providing sufficient analgesia to allow the patient to participate in activities of daily living. The patient is not exhibiting any aberrant behavior suggestive of drug diversion. The patient is not having any adverse reactions to medications. The patient is not suffering from daytime somnolence or mental acuity changes. The patient is managing opiate-induced constipation with appropriate bfjw-lvz-exojktf agents and dietary considerations. The patient was counseled on concern for caution with operating a motor vehicle while using opiate medications. A physical exam was performed and the patient's functional status was evaluated. All patients with back pain were advised against the bed rest greater than 4 days and were advised to return to normal activities. Pain score assessment was noted and the treatment plan was reviewed with the patient. All current medications, both prescribed and OTC were reviewed and reconciled on the electronic medical record. Tobacco screening was accomplished and smoking cessation was advised when indicated. BMI was noted and diet/exercise modification was recommended for all patients following outside normal parameters. I reviewed with the patient today their responsibilities to safeguard prescription medications, reviewed their responsibility to utilize medications only as prescribed by the physician. They are to seek and receive pain medications only from 1 physician group ( [facility]). They are to use 1 pharmacy and keep the clinic informed if they change pharmacies. Their responsibilities include making followup visits in a timely fashion and to avoid abrupt discontinuation of medication usage. Their responsibilities further include bringing their medications (bottles from the pharmacy with residual pills) to the visit for possible confirmation of pill counts and the patient understands it is their responsibility to submit to random drug screens to ensure both that the medications prescribed are present, and that no other controlled substances are present. All prescriptions provided today were [address] [address] PAIN MANAGEMENT CONSULTATION Name: GUADALUPE ACUÑA Room #: REG MARVIN B[facility]#: [id number] Admission: 05/23/19 Attend Phys: Marija Redd Discharge: Date of : 77 Report #: [id number] generated electronically. PLAN: 1. We discussed treatment options with the patient today. The patient reports that she will be having surgery on her left foot in July. I explained to her to try and decrease her pain medication several days prior to surgery that will bottler helper in her postoperative pain control as well as her anesthesia during surgery. The patient verbalizes understanding. Scripts given today for Nucynta 50 mg, #90, for today for an 8-week release. The patient does take these on a sparingly basis and this medication should last her through her postoperative period, so no additional medications were given for this time. 2. Urine drug screen was collected today. 3. The patient is seen in collaboration with Dr. Abner Pickens. <ELECTRONICALLY SIGNED> By: Marija Redd 05/24/19 1122 [id number] Marija Redd /stephan
== END ==
LOC: PAIN 06:55
DX: M72.2 Plantar fascial fibromatosis (principal); G89.29 Other chronic pain; M79.671 Pain in right foot; M79.672 Pain in left foot

== ENCOUNTER → 2019-10-24 | Outpatient (CLI) | payer OTHER ==
[~2019-10-24] VITALS: Ht 165.1 cm; Wt 111.0 kg
[~2019-10-24] MED LIST changes: +METFORMIN HCL500 M3 PO
[2019-10-24 13:22] VITALS: BP 150/44
--- NOTE | 2019-10-24 13:28 | NUR ---
Pain Clinic Assessment: 1. History of Osteoarthritis: Not Applicable History of Rheumatoid Arthritis: Not Applicable 2. Height: 5 ft. 5 in. 165.1 cm. Weight: 244.6 lb. oz. 110.950 kg. Patient's BMI: 40.7 3. Vital Signs: BP: 150/44 Pulse: 109 Resp: 16 Temp: 02 Sat: 96 ECG Mon: 4. Pain Intensity: 5 5. Fall Risk: Dizziness: N Needs help standing or walking: Y Fallen in the last 3 months: N Fall risk comments: 6. Patient on Blood Thinner: None 7. History of Hypertension: Y 8. Opioid Therapy greater than 6 weeks: Y Opiate Contract Signed: 08/24/17 9. Risk Assessment Tool Provided: LOW RISK 0/3 10. Functional Assessment Tool: 11. Recreational Drug Use: Never Drug Type: Tobacco Use: Never Smoker Tobacco Type: Amount or Packs/day: How Many Years: Alcohol Use: Yes Frequency: Quant:
--- NOTE | 2019-10-30 08:27 | HPC ---
[facility] [place] [address] PAIN MANAGEMENT CONSULTATION Name: GUADALUPE ACUÑA Room #: REG MARVIN LynnNicholasAdan.#: [id number] Admission: 10/24/19 Attend Phys: Abner Pickens DO Discharge: Date of : 77 Report #: [id number] THIS REPORT FOR: cc: Luciana Bennett MD, Linda MD Johnson, James E. DO ~ DATE OF SERVICE: 10/24/2019 CHIEF COMPLAINT: Bilateral foot pain. HISTORY OF PRESENT ILLNESS: As you know, the patient is a very pleasant 43-year-old female who returns today in followup visit requesting refill on medications to address residual foot pain. The patient has completed a surgery on her left foot and is now doing light toe touch type of exercises. She has not been able to undergo full weightbearing as of yet. She is about 8 weeks post-surgery and states that her pain that was typically present in the left foot has completely resolved. She is extremely pleased with the response to the surgical treatment on the left and is planning to undergo right surgery when she is fully healed from the left. She returns today in followup visit requesting refill of medications. She is denying side effects of sleepiness, disorientation, confusion, mental slowing with the use of therapy. She does feel medications provide benefit for pain control. ALLERGIES: KEFLEX, BACTRIM. CURRENT MEDICATIONS: Nucynta 50 mg q.8 hours p.r.n. pain, metformin ER 500 mg once a day, hydrocodone 5/325 one tab every 6-8 hours p.r.n. for migraines, albuterol 2 puffs q. 4 hours p.r.n., rizatriptan 5 mg p.r.n., losartan 50 mg per day and promethazine 25 mg p.r.n. SOCIAL HISTORY: The patient denies tobacco, alcohol, IV or illicit drug use. She is unaccompanied at today's visit. IMAGING: No new imaging available. PHYSICAL EXAMINATION: VITAL SIGNS: Blood pressure 150/44, pulse 109, respiratory rate 16 and unlabored. The patient is 96% on room air. Height 5 feet 5 inches tall, weight 244.6 pounds, BMI calculated 40.7. GENERAL: Well-developed, well-nourished, well-hydrated, morbidly obese 43-year-old female appearing stated age, pain is rated today 5/10. HEENT: Normocephalic, atraumatic. Pupils equal, round and reactive to light. EXTREMITIES: Show no clubbing, no cyanosis, no edema. MUSCULOSKELETAL: The patient is utilizing crutches for ambulation[place] [address] PAIN MANAGEMENT CONSULTATION Name: GUADALUPE ACUÑA Room #: REG CLBryant Nunez.#: [id number] Admission: 10/24/19 Attend Phys: Abner Pickens DO Discharge: Date of : 77 Report #: [id number] to toe touch with the left foot without significant pain. She is experiencing pain in the right foot and right knee due to offloading weight from the left. This is not atypical. Gait is antalgic with the use of the crutches. ASSESSMENT: 1. Bilateral foot pain. 2. Bilateral plantar fasciitis, status post left side release. 3. Chronic intractable pain. PLAN: 1. The patient has returned today in followup visit indicating that surgery has improved her left foot pain significantly. She is now reporting pain levels, greatly reduced on the left, but continues on the right due to having to offload weight on to the right due to inability to weightbear on the left. She returns today stating that she is ultimately going to have the right side addressed surgically as well, but wishes to heal from the left side. She is requesting refill of medications at this time. She is denying side effects of sleepiness, disorientation, confusion and mental slowing. 2. We reviewed the fact that opiate medications are being used to provide analgesia adequate to support activities of daily living, not attempting to achieve a specific pain score on the 0-10 Visual Analog Scale. The current opiate medications are providing sufficient analgesia to allow the patient to participate in activities of daily living. The patient is not exhibiting any aberrant behavior suggestive of drug diversion. The patient is not having any adverse reactions to medications. The patient is not suffering from daytime somnolence or mental acuity changes. The patient is managing opiate-induced constipation with appropriate iahr-orh-hiwjwfk agents and dietary considerations. The patient was counseled on concern for caution with operating a motor vehicle while using opiate medications. A physical exam was performed and the patient's functional status was evaluated. All patients with back pain were advised against the bed rest greater than 4 days and were advised to return to normal activities. Pain score assessment was noted and the treatment plan was reviewed with the patient. All current medications, both prescribed and OTC were reviewed and reconciled on the electronic medical record. Tobacco screening was accomplished and smoking cessation was advised when indicated. BMI was noted and diet/exercise modification was recommended for all patients following outside normal parameters. I reviewed with the patient today their responsibilities to safeguard prescription medications, reviewed their responsibility to utilize medications only as prescribed by the physician. They are to seek and receive pain medications only from 1 physician group ( [facility]). They are to use 1 pharmacy and keep the clinic informed if they change pharmacies. Their responsibilities include making followup visits in a timely fashion and to avoid abrupt discontinuation of medication usage. Their responsibilities further include bringing their medications (bottles from the pharmacy with residual pills) to the visit for possible confirmation of pill counts and the patient understands it is their responsibility to submit to [facility] [address] [place] [address] PAIN MANAGEMENT CONSULTATION Name: ARIANNEGUADALUPE Room #: REG ANTHONYBryant Buitrago#: [id number] Admission: 10/24/19 Attend Phys: Abner Pickens DO Discharge: Date of : 77 Report #: [id number] random drug screens to ensure both that the medications prescribed are present, and that no other controlled substances are present. All prescriptions provided today were generated electronically. 3. The patient was provided prescription of Nucynta 50 mg dose 1 tab p.o. q. 8 hours p.r.n. for pain. I have given the patient #90 tablets, releasing today, 4 weeks from today, 8 weeks from today, 3 months' worth of medication. The patient was advised to take the medication as directed, not to rely on the medication prophylactically. 4. We will see the patient back in followup visit in 3 months. We are hopeful that by then the patient will be fully weightbearing on the left foot and will be preparing to look towards right foot surgery to resolve her symptoms from her plantar fasciitis. <ELECTRONICALLY SIGNED> By: Abner Pickens DO 10/30/19 0827 [id number] Abner Pickens DO /stephan
== END ==
LOC: PAIN 06:47
DX: M79.672 Pain in left foot (principal); M79.671 Pain in right foot; M72.2 Plantar fascial fibromatosis; G89.4 Chronic pain syndrome

== ENCOUNTER → 2020-02-19 | Outpatient (CLI) | payer OTHER ==
[~2020-02-19] VITALS: Ht 165.1 cm; Wt 113.3 kg
[~2020-02-19] MED LIST changes: +ROSUVASTATIN CA10 MG PO
[2020-02-19 09:04] VITALS: BP 156/99
--- NOTE | 2020-02-19 09:15 | NUR ---
Pain Clinic Assessment: 1. History of Osteoarthritis: Not Applicable History of Rheumatoid Arthritis: Not Applicable 2. Height: 5 ft. 5 in. 165.1 cm. Weight: 249.8 lb. oz. 113.309 kg. Patient's BMI: 41.6 3. Vital Signs: BP: 156/99 Pulse: 93 Resp: 16 Temp: 02 Sat: 100 ECG Mon: 4. Pain Intensity: 5 5. Fall Risk: Dizziness: N Needs help standing or walking: N Fallen in the last 3 months: N Fall risk comments: 6. Patient on Blood Thinner: None 7. History of Hypertension: Y 8. Opioid Therapy greater than 6 weeks: Y Opiate Contract Signed: 08/24/17 9. Risk Assessment Tool Provided: LOW RISK 0/3 10. Functional Assessment Tool: / 11. Recreational Drug Use: Never Drug Type: Tobacco Use: Never Smoker Tobacco Type: Amount or Packs/day: How Many Years: Alcohol Use: Yes Frequency: Quant:
--- NOTE | 2020-02-19 11:23 | HPC ---
[facility] [place] [address] PAIN MANAGEMENT CONSULTATION Name: GUADALUPE ACUÑA Room #: REG MARVIN M.Adan.#: [id number] Admission: 02/19/20 Attend Phys: Marija Redd Discharge: Date of : 77 Report #: [id number] THIS REPORT FOR: cc: Luciana Bennett MD,Abner Fninegan MD, DO ~ DATE OF SERVICE: 02/19/2020 CHIEF COMPLAINT: Right foot pain. HISTORY OF PRESENT ILLNESS: As you know, the patient is a very pleasant 44-year-old female who has returned today in followup visit for refill of medications. She has successfully completed surgical intervention on the left foot, which has resolved her symptoms nearly entirely. She continues to experience just some mild pain in the left foot, but continued full intensity right foot pain. She just graduated from her physical therapy addressing her left foot. Plans are to have the patient undergo similar surgery on the right foot as early as April or May. The patient is considering this option, but may delay the surgery until August. She returns today in followup visit requesting a refill on medications. She feels medications are working well for controlling her right foot pain. She returns today in followup visit for refill of medications at the current dosing. She is denying side effects of sleepiness, disorientation, confusion, mental slowing or constipation with the use of therapy. She has not sustained any new injury or trauma. ALLERGIES: KEFLEX, BACTRIM. CURRENT MEDICATIONS: Nucynta 50 mg q. 8 hours p.r.n., metformin 500 mg once a day, hydrocodone 5/325 one tab every 8 hours p.r.n. for migraines, albuterol 2 puffs q. 4 hours p.r.n., rizatriptan 5 mg p.r.n., losartan 50 mg per day, promethazine 25 mg p.r.n. SOCIAL HISTORY: The patient denies tobacco, alcohol, IV or illicit drug use. She is unaccompanied at today's visit. IMAGING: No new imaging available. PHYSICAL EXAMINATION: VITAL SIGNS: Blood pressure 156/99, pulse 93, respiratory rate 16 and unlabored. The patient is 100% on room air. Height 5 feet 5 inches tall, weighs 249.8 pounds and BMI calculated 41.6. GENERAL: Well-developed, well-nourished, well-hydrated, morbidly obese 44-year-old female appearing stated age. She is placing pain today at 01/05. HEENT: Normocephalic, atraumatic. Pupils equal, round and reactive. Speech is fluent. [address] [address] PAIN MANAGEMENT CONSULTATION Name: ARIANNEGUADALUPE Room #: REG MARVIN Nuenz.#: [id number] Admission: 02/19/20 Attend Phys: Marija Redd Discharge: Date of : 77 Report #: [id number] EXTREMITIES: Show no clubbing, no cyanosis, no edema. MUSCULOSKELETAL: There is a well-healed surgical scar on the left foot radiating from the medial arch crossed towards the posterior leg. MUSCULOSKELETAL: The patient is using a cane now for ambulation and balance. She is moving more frequently on the left foot. There is good plantar flexion, dorsiflexion of that foot. There is restriction in supination and pronation of the left foot when compared to the right. Gait remains antalgic though now favoring more the right lower extremity. ASSESSMENT: 1. Right foot pain. 2. Left foot post-surgical pain. 3. Bilateral plantar fasciitis, status post left release. 4. Chronic intractable pain. 5. Opioid dependency. PLAN: 1. The patient returns today in followup visit indicating improving symptoms on the left side. She is now graduated from physical therapy and the symptoms from the post-surgical standpoint have significantly improved. She continues to experience right foot pain, which is typical for her. She is considering surgical options, but is planning to possibly delay as long as August due to the recovery time from the left foot pain. We did discuss with the patient if she does plan to undergo foot surgery in August that we should reduce the reliance on opioids prior to surgery by about 3 weeks, so that postoperatively, her pain control is much improved. She is agreeable with this plan. At this time, the patient wishes to continue on current medication to address ongoing right foot symptoms and any residual left foot pain status post surgery. 2. We reviewed the fact that opiate medications are being used to provide analgesia adequate to support activities of daily living, not attempting to achieve a specific pain score on the 0-10 Visual Analog Scale. The current opiate medications are providing sufficient analgesia to allow the patient to participate in activities of daily living. The patient is not exhibiting any aberrant behavior suggestive of drug diversion. The patient is not having any adverse reactions to medications. The patient is not suffering from daytime somnolence or mental acuity changes. The patient is managing opiate-induced constipation with appropriate pkxs-azi-pebvdgs agents and dietary considerations. The patient was counseled on concern for caution with operating a motor vehicle while using opiate medications. A physical exam was performed and the patient's functional status was evaluated. All patients with back pain were advised against the bed rest greater than 4 days and were advised to return to normal activities. Pain score assessment was noted and the treatment plan was reviewed with the patient. All current medications, both prescribed and OTC were reviewed and reconciled on the electronic medical record. Tobacco screening was accomplished and smoking [facility] [address] [place] [address] PAIN MANAGEMENT CONSULTATION Name: GUADALUPE ACUÑA Room #: [facility] Center[facility]#: [id number] Admission: 02/19/20 Attend Phys: Marija Redd Discharge: Date of : 77 Report #: [id number] cessation was advised when indicated. BMI was noted and diet/exercise modification was recommended for all patients following outside normal parameters. I reviewed with the patient today their responsibilities to safeguard prescription medications, reviewed their responsibility to utilize medications only as prescribed by the physician. They are to seek and receive pain medications only from 1 physician group ( [facility]). They are to use 1 pharmacy and keep the clinic informed if they change pharmacies. Their responsibilities include making followup visits in a timely fashion and to avoid abrupt discontinuation of medication usage. Their responsibilities further include bringing their medications (bottles from the pharmacy with residual pills) to the visit for possible confirmation of pill counts and the patient understands it is their responsibility to submit to random drug screens to ensure both that the medications prescribed are present, and that no other controlled substances are present. All prescriptions provided today were generated electronically. 3. The patient was provided prescription of Nucynta 50 mg dose 1 tab p.o. q.i.d. I have given the patient #90 tablets to release today, 4 weeks from today, 8 weeks from today, 3 months' worth of medication. The patient was advised to take the medication as directed, not to take the medication prophylactically. 4. We will see the patient back in followup visit in 3 months. We will discuss efficacy of medication and also discussed surgical timing so that we can wean the patient off of opioids approximately 1 month to 3 weeks prior to surgery. The patient is agreeable with this plan. We will see her back in 3 months. <ELECTRONICALLY SIGNED> By: Abner Pickens DO 02/19/20 1123 1102 1118 Abner Pickens DO /nt
== END ==
LOC: PAIN 06:49
PROVIDERS: ATTEND Clinical Nurse Specialist Adult Health
DX: M79.671 Pain in right foot (principal); M72.2 Plantar fascial fibromatosis; G89.29 Other chronic pain; F11.20 Opioid dependence, uncomplicated; Z88.8 Allergy status to other drugs, medicaments and biological substances; Z79.899 Other long term (current) drug therapy

== ENCOUNTER → 2020-07-15 | Outpatient (CLI) | payer OTHER ==
[~2020-07-15] VITALS: Ht 165.1 cm; Wt 113.8 kg
[2020-07-15 10:11] VITALS: BP 133/93
--- NOTE | 2020-07-16 12:43 | HPC ---
[facility] [place] [address] PAIN MANAGEMENT CONSULTATION Name: GUADALUPE ACUÑA Room #: REG MARVIN Nunez.#: [id number] Admission: 07/15/20 Attend Phys: Abner Pickens DO Discharge: Date of : 77 Report #: [id number] THIS REPORT FOR: cc: Luciana Bennett MD,Abner Finnegan MD, DO ~ DATE OF SERVICE: 07/15/2020 REFERRING PHYSICIAN: Lennox Arvizu DPM CHIEF COMPLAINT: Right foot pain, intermittent left foot pain. HISTORY OF PRESENT ILLNESS: As you know, the patient is a very pleasant 44-year-old female who suffers from bilateral foot pain, right greater than left. She has undergone surgery on the foot with improvement in symptoms. The left foot is nearly resolved from a pain standpoint. She continues to participate in physical therapy to strengthen the foot itself in preparation for undergoing right foot surgery. She is very pleased with response to the left surgery and returns for medication management as we await right foot surgery. She is doing well with medications, denying side effects of sleepiness, disorientation, confusion, mental slowing or constipation. She feels the medications are beneficial and wishes to continue the therapy. Pain is rated at no greater than 5/10 and this is with long standing or ambulation. ALLERGIES: KEFLEX AND BACTRIM. CURRENT MEDICATIONS: Nucynta 50 mg dose 1 tab p.o. t.i.d. p.r.n. pain, rosuvastatin 10 mg per day, metformin 500 mg once a day, albuterol 2 puffs q. 4 hours p.r.n., losartan 50 mg once a day, promethazine 25 mg b.i.d. SOCIAL HISTORY: The patient denies tobacco, alcohol, IV or illicit drug use. She is unaccompanied today. IMAGING: No new imaging available. PHYSICAL EXAMINATION: VITAL SIGNS: Blood pressure 133/93, pulse is 98, respiratory rate 16 and unlabored. The patient is 98% on room air. Height 5 feet 5 inches tall, weight 250.8 pounds, BMI calculated 41.7. GENERAL: Well-developed, well-nourished, well-hydrated, class 3, morbidly obese 44-year-old female appearing stated age, pain is rated today around 5/10 at its worst. HEENT: Normocephalic, atraumatic. Pupils equal, round and reactive. EXTREMITIES: Show no clubbing, no cyanosis. No appreciable edema. MUSCULOSKELETAL: Lower extremity strength appears symmetrical 5/5[place] [address] PAIN MANAGEMENT CONSULTATION Name: GUADALUPE ACUÑA Room #: REG [facility].#: [id number] Admission: 07/15/20 Attend Phys: Abner Pickens DO Discharge: Date of : 77 Report #: [id number] elicited with standing from a seated position or dorsiflexion of the foot on the right. There is also restriction in supination and pronation of the left foot when compared to the right secondary to surgical changes, though this is improved from our previous evaluation. Gait is antalgic. ASSESSMENT: 1. Right foot pain. 2. Left foot pain, status post surgery with improvement in function. 3. Bilateral plantar fasciitis, status post left release. 4. Chronic intractable pain. 5. Opioid dependency. PLAN: 1. The patient returns today in followup visit for refill of medications. She states that overall she has been doing much better. Her left foot pain has improved significantly as has the functionality of the left foot. They are planning to schedule the right foot surgery in the very near future. She returns today to continue the Nucynta therapy on an as needed basis for pain control. She does not take the medication consistently 3 times a day and typically does not need refills every 3 months. The last refill she had was 02/19/2020. She returns today for refill of medications as she is beginning to run low of her prescription medication for pain control. The patient is denying side effects to the therapy at this time. 2. We reviewed the fact that opiate medications are being used to provide analgesia adequate to support activities of daily living, not attempting to achieve a specific pain score on the 0-10 Visual Analog Scale. The current opiate medications are providing sufficient analgesia to allow the patient to participate in activities of daily living. The patient is not exhibiting any aberrant behavior suggestive of drug diversion. The patient is not having any adverse reactions to medications. The patient is not suffering from daytime somnolence or mental acuity changes. The patient is managing opiate-induced constipation with appropriate esuu-mns-iamuklv agents and dietary considerations. The patient was counseled on concern for caution with operating a motor vehicle while using opiate medications. A physical exam was performed and the patient's functional status was evaluated. All patients with back pain were advised against the bed rest greater than 4 days and were advised to return to normal activities. Pain score assessment was noted and the treatment plan was reviewed with the patient. All current medications, both prescribed and OTC were reviewed and reconciled on the electronic medical record. Tobacco screening was accomplished and smoking cessation was advised when indicated. BMI was noted and diet/exercise modification was recommended for all patients following outside normal parameters. I reviewed with the patient today their responsibilities to [address] [address] PAIN MANAGEMENT CONSULTATION Name: GUADALUPE ACUÑA Room #: REG Bryant Nunez.#: [id number] Admission: 07/15/20 Attend Phys: Abner Pickens DO Discharge: Date of : 77 Report #: [id number] prescription medications, reviewed their responsibility to utilize medications only as prescribed by the physician. They are to seek and receive pain medications only from 1 physician group ( [facility]). They are to use 1 pharmacy and keep the clinic informed if they change pharmacies. Their responsibilities include making followup visits in a timely fashion and to avoid abrupt discontinuation of medication usage. Their responsibilities further include bringing their medications (bottles from the pharmacy with residual pills) to the visit for possible confirmation of pill counts and the patient understands it is their responsibility to submit to random drug screens to ensure both that the medications prescribed are present, and that no other controlled substances are present. All prescriptions provided today were generated electronically. 3. The patient was provided a prescription of Nucynta 50 mg dose 1 tab p.o. t.i.d. p.r.n. pain. I have given the patient #90 tablets to release today, 4 weeks from today, 8 weeks from today, 3 months' worth of medication. All prescriptions provided to the patient in written form today as the capability of E-scribe was not available to us. The patient was advised to safeguard these prescriptions. 4. We will see the patient back in followup visit in 3 months for medication management, assuming that the right foot surgery has not gone forward. She is planning to have this done either just prior to or just after the holidays. We wish her well with the surgery. We will see her back on an as needed basis. <ELECTRONICALLY SIGNED> By: Abner Pickens DO 07/16/20 1243 [id number] Abner Pickens DO /nt
== END ==
LOC: PAIN 06:50
PROVIDERS: ATTEND Anesthesiology Pain Medicine
DX: M79.671 Pain in right foot (principal); M79.672 Pain in left foot; M72.2 Plantar fascial fibromatosis; G89.29 Other chronic pain; F11.20 Opioid dependence, uncomplicated; Z88.8 Allergy status to other drugs, medicaments and biological substances; Z79.899 Other long term (current) drug therapy

== ENCOUNTER → 2020-10-14 | Outpatient (CLI) | payer OTHER ==
[~2020-10-14] VITALS: Ht 165.1 cm; Wt 114.7 kg
[2020-10-14 09:24] VITALS: BP 131/94
--- NOTE | 2020-10-14 09:30 | NUR ---
Pain Clinic Assessment: 1. History of Osteoarthritis: Not Applicable History of Rheumatoid Arthritis: Not Applicable 2. Height: 5 ft. 5 in. 165.1 cm. Weight: 252.8 lb. oz. 114.670 kg. Patient's BMI: 42.1 3. Vital Signs: BP: 131/94 Pulse: 112 Resp: 18 Temp: 02 Sat: 97 ECG Mon: 4. Pain Intensity: 10 5. Fall Risk: Dizziness: N Needs help standing or walking: N Fallen in the last 3 months: N Fall risk comments: 6. Patient on Blood Thinner: None 7. History of Hypertension: Y 8. Opioid Therapy greater than 6 weeks: Y Opiate Contract Signed: 08/24/17 9. Risk Assessment Tool Provided: LOW RISK 0/3 10. Functional Assessment Tool: 11. Recreational Drug Use: Never Drug Type: Tobacco Use: Never Smoker Tobacco Type: Amount or Packs/day: How Many Years: Alcohol Use: Yes Frequency: Quant:
--- NOTE | 2020-10-14 13:12 | HPC ---
[facility] [address] [place] [address] PAIN MANAGEMENT CONSULTATION Name: GUADALUPE ACUÑA Room #: REG MARVIN Nunez.#: [id number] Admission: 10/14/20 Attend Phys: Abner Pickens DO Discharge: Date of : 77 Report #: [id number] THIS REPORT FOR: cc: Luciana Bennett MD,Abner Finnegan MD, DO ~ DATE OF SERVICE: 10/14/2020 REFERRING PHYSICIAN: Lennox Arvizu DPM PRIMARY CARE PHYSICIAN: Luciana Bennett MD CHIEF COMPLAINT: Bilateral foot pain. HISTORY OF PRESENT ILLNESS: As you know, the patient is a very pleasant 44-year-old female who suffers from chronic bilateral foot pain, right greater than left. She has undergone surgery on her feet with minor improvement in symptoms. She states she experienced pain for which she places pain today at 10/10. She states that standing for long periods of time, walking long distances and cold temperatures tend to exacerbate her symptoms. She has been trialled on virtually every opioid medication available ultimately settling on Nucynta, which has provided good benefit and no side effects. She reports with the medication about 75-80% improvement in symptoms. She recently received a letter from her third green party payer indicating they were no longer going to be covering the Nucynta medication and requesting that we rotate the patient back to medication she has failed in the past and received no improvement in symptoms including oxycodone, hydrocodone and MS Contin. The patient has been on all these medications and reported either side effects, could not tolerate or lack of efficacy. She received excellent benefit with the Nucynta and we continued her on the medication. She has been on the medication since 2016 when we first saw the patient. She returns today to discuss options for treatment to address her 10/10 bilateral foot pain. ALLERGIES: KEFLEX AND BACTRIM. CURRENT MEDICATIONS: Nucynta 50 mg 1 tablet p.o. b.i.d. p.r.n. pain, lovastatin 10 mg per day, metformin 500 mg q.a.m., albuterol 2 puffs q.4 hours p.r.n., losartan 50 mg per day, promethazine 25 mg b.i.d. p.r.n. SOCIAL HISTORY: The patient denies tobacco, alcohol, IV or illicit drug use. She is unaccompanied at today's visit. She continues to work. IMAGING: No new imaging available. PHYSICAL EXAMINATION: VITAL SIGNS: Blood pressure 131/94, pulse is 112, respiratory rate [address] [address] PAIN MANAGEMENT CONSULTATION Name: GUADALUPE ACUÑA Room #: REG [facility].#: [id number] Admission: 10/14/20 Attend Phys: Abner Pickens DO Discharge: Date of : 77 Report #: [id number] unlabored. The patient is 97% on room air. Height 5 feet 5 inches tall, weight 252.8 pounds, BMI calculated 42.1. GENERAL: Well-developed, well-nourished, well-hydrated, class III, morbidly obese 44-year-old female appearing stated age, pain is rated today 10/10. HEENT: Normocephalic and atraumatic. Pupils are equal, round and reactive. The patient is wearing a mask in compliance with COVID-19 regulations. EXTREMITIES: Show no clubbing, no cyanosis. No appreciable edema. MUSCULOSKELETAL: Pain is elicited from standing position also noted with dorsiflexion and plantar flexion of the right foot. There is dorsiflexion pain on the left, but no pain with plantar flexion on the left. Restriction in supination and pronation of the left foot when compared to the right secondary to surgical changes. Gait remains antalgic. Lower extremity strength is equal and symmetrical 5/5 except for the changes of dorsiflexion, plantarflexion listed above. ASSESSMENT: 1. Bilateral foot pain. 2. Bilateral severe plantar fasciitis, status post left release. 3. Chronic intractable pain. 4. Opioid dependency. 5. Complicated medication management utilizing opioid medications. PLAN: 1. The patient has returned today in followup visit having received a letter from her insurer indicating that they were no longer going to be covering the Nucynta medication. Even though the patient has reported excellent benefit with this medication, they have chosen not to provide this in their formulary. They have requested the patient will rotate to oxycodone, hydrocodone, MS Contin or tramadol. The patient has been on all of these medications in the past, MS Contin caused severe itching and had to be discontinued and no significant analgesic benefit. The patient was then placed on hydrocodone, which caused constipation issues and no analgesic benefit. She was then rotated to oxycodone, which caused multiple side effects with minimal analgesic benefit. We had then rotated the patient's Nucynta and received excellent benefit in her symptoms and no side effects. She was able to return to all activities of daily living including her work activities without difficulty. She returns today with this letter indicating that her insurance will no longer cover the medication as no longer on formulary. 2. We will trial the patient on tramadol 50 mg dose 2 tablets at least twice to 3 times a day for pain control. The patient will watch for side effects with this medication. She has been on tramadol in the past and received no benefit, but we will once again trial of medication per the request of the insurer though this is of little or no benefit in the past, we are hopeful the patient will see benefit with the medication today. 3. The patient was provided a prescription of this medication to trial for pain control to address her ongoing nociceptive and neuropathic pain. She was [facility] [address] [place] [address] PAIN MANAGEMENT CONSULTATION Name: ARIANNEGUADALUPE Room #: REG MARVIN Buitrago#: [id number] Admission: 10/14/20 Attend Phys: Abner Pickens DO Discharge: Date of : 77 Report #: [id number] provided a prescription of #120 tablets sent to her local pharmacy. She will begin this medication immediately. 4. We have advised the patient will be more than willing to provide a prior authorization attempt to obtain Nucynta though our experience with this insurance company as they would not provide coverage for this therapy and I discussed that she should contact her insurance directly as she is the consumer and she can fill a complaint if she wishes to do so for the coverage, we recommended strongly given the limited formulary the insurance is providing. She would not be able to see much in the way of benefit from a pain standpoint as she has been than those medications in the past and they were ineffective. The patient can contact her third green party payer as well to establish a request for review. We will provide a prior authorization for the patient to be sent in if she wishes us to do so. We will attempt to coverage, though our experience with this insurance is poor on gaining coverage for appropriate medications. 5. We plan to see the patient back in followup visit on an as needed basis. We typically see her on a quarterly basis or even as much as every 4 months, but with the changes in medication requested there may be a necessity to see the patient back more rapidly. It is unfortunate that the coverage of his Nucynta is being questioned as the patient has been doing very well on the medication, she is not having any refills, in fact she has been able to extend 3-month prescription to at least 4 and possibly even 5 months at times depending on her activity. Again, we will be willing to provide an authorization request, though experience with this insurance company has been a suboptimal. We will see her back on an as needed basis. <ELECTRONICALLY SIGNED> By: Abner Pickens DO 10/14/20 1312 [id number] [id number] Abner Pickens DO /nt
== END ==
LOC: PAIN 06:57
PROVIDERS: ATTEND Anesthesiology Pain Medicine
DX: M72.2 Plantar fascial fibromatosis (principal); G89.4 Chronic pain syndrome; M79.671 Pain in right foot; M79.672 Pain in left foot; Z79.891 Long term (current) use of opiate analgesic

== ENCOUNTER → 2021-01-13 | Outpatient (CLI) | payer OTHER ==
[~2021-01-13] VITALS: Ht 165.1 cm; Wt 110.0 kg
[2021-01-13 08:56] VITALS: BP 137/94
--- NOTE | 2021-01-13 09:17 | NUR ---
Pain Clinic Assessment: 1. History of Osteoarthritis: Not Applicable History of Rheumatoid Arthritis: Not Applicable 2. Height: 5 ft. 5 in. 165.1 cm. Weight: 242.6 lb. oz. 110.043 kg. Patient's BMI: 40.4 3. Vital Signs: BP: 137/94 Pulse: 82 Resp: 16 Temp: 02 Sat: 100 ECG Mon: 4. Pain Intensity: 8 5. Fall Risk: Dizziness: N Needs help standing or walking: N Fallen in the last 3 months: N Fall risk comments: 6. Patient on Blood Thinner: None 7. History of Hypertension: Y 8. Opioid Therapy greater than 6 weeks: Y Opiate Contract Signed: 08/24/17 9. Risk Assessment Tool Provided: LOW RISK 0/3 10. Functional Assessment Tool: 11. Recreational Drug Use: Never Drug Type: Tobacco Use: Never Smoker Tobacco Type: Amount or Packs/day: How Many Years: Alcohol Use: Yes Frequency: Quant:
--- NOTE | 2021-01-14 08:22 | HPC ---
[facility] [address] [place] [address] PAIN MANAGEMENT CONSULTATION Name: GUADALUPE ACUÑA Room #: REG MARVIN Nunez.#: [id number] Admission: 01/13/21 Attend Phys: Abner Pickens DO Discharge: Date of : 77 Report #: [id number] THIS REPORT FOR: cc: Luciana Bennett MD,Abner Finnegan MD, DO ~ DOC #: [id number] cc: Lennox Arvizu DPM, MD Abner Hernandez, DATE OF SERVICE: 01/13/2021 CHIEF COMPLAINT: Bilateral foot pain. HISTORY OF PRESENT ILLNESS: As you know, the patient is a very pleasant 45-year-old female, suffering from bilateral chronic foot pain, right greater than left. She has undergone surgery to address symptoms on the left side with about 75% improvement in overall pain. Unfortunately, she continues to experience right foot pain for which she places pain at a level of 8/10. The patient has plans to undergo surgery to address the right foot in July or August of this year. She has delayed surgical options as it does debilitate her for an extended period of time. She returns today in followup visit requesting refill of medications. We have just received authorization through the insurer for the patient to restart her Nucynta for which she was noticing excellent benefit. She states the tramadol was minimally effective. She returns for adjustments back to Nucynta 3 times a day dosing. She indicates pain is chronic in nature, sharp and throbbing in sensation, exacerbated with standing, walking, cold weather, any changes in weather that is rapid; improves with sitting, medications, heat and cold compresses. She returns today for adjustments in medication management. ALLERGIES: KEFLEX, BACTRIM. CURRENT MEDICATIONS: Tramadol 50 mg 2 tabs twice a day, rosuvastatin 10 mg once a day, metformin 500 mg q.a.m., losartan 50 mg per day, promethazine 25 mg per day. SOCIAL HISTORY: The patient denies tobacco, alcohol or IV or illicit drug use. She is unaccompanied today. IMAGING: No new imaging available. PHYSICAL EXAMINATION: VITAL SIGNS: Blood pressure 137/94, pulse 82, respiratory rate 16 and unlabored. The patient is 100% on room air. Height 5 feet 2 inches tall, weight 242.6 pounds, BMI calculated 40.4. GENERAL: Well-developed, well-nourished, well-hydrated, [place] [address] PAIN MANAGEMENT CONSULTATION Name: GUADALUPE ACUÑA Room #: REG [facility]#: [id number] Admission: 01/13/21 Attend Phys: Abner Pickens DO Discharge: Date of : 77 Report #: [id number] obese 45-year-old female, appearing stated age, placing pain score today at 8/10. HEENT: Normocephalic, atraumatic. Pupils equal, round and responsive to light. She is wearing a mask in compliance with COVID-19 regulations. EXTREMITIES: Show no clubbing, no cyanosis, no edema. MUSCULOSKELETAL: Standing from a seated position exacerbates right foot pain and minimally on the left. Pain is noted with palpation of the plantar surface of the foot, negative on the dorsum of the foot. Restriction of supination and pronation of left foot compared to the right is noted. Gait is antalgic, favoring right lower extremity. ASSESSMENT: 1. Bilateral foot pain. 2. Bilateral severe plantar fasciitis, status post left release and continued dysfunction. 3. Severe plantar fasciitis of the right foot. 4. Chronic intractable pain. 5. Opioid dependency. 6. Complicated medication management utilizing scheduled medications. PLAN: 1. The patient returns today in followup visit, having received authorization through her insurer to restart Nucynta. I am pleased that we have received this opportunity as the patient was not noticing much in the way of benefit from the tramadol. She was taking 100 mg twice a day with minimal benefit. She has done very well with the Nucynta in the past and was able to participate in daily activities with its use. Denying side effects of sleepiness, disorientation, confusion. She returns today in followup visit for refill of those medications. 2. We have reviewed the patient's PDMP. There is no concerning entries on the PDMP to date. She returns for refill of medications. We have reviewed the patient's opioid contract with [facility] and has no concerning entries. 3. We reviewed the fact that opiate medications are being used to provide analgesia adequate to support activities of daily living, not attempting to achieve a specific pain score on the 0-10 Visual Analog Scale. The current opiate medications are providing sufficient analgesia to allow the patient to participate in activities of daily living. The patient is not exhibiting any aberrant behavior suggestive of drug diversion. The patient is not having any adverse reactions to medications. The patient is not suffering from daytime somnolence or mental acuity changes. The patient is managing opiate-induced constipation with appropriate lucb-spv-mfnztks agents and dietary considerations. The patient was counseled on concern for caution with operating a motor vehicle while using opiate medications. A physical exam was performed and the patient's functional status was evaluated. All patients with back pain were advised against the bed rest greater than 4 days and were advised to return to normal activities. Pain score assessment was [facility] [address] [place] [address] PAIN MANAGEMENT CONSULTATION Name: GUADALUPE ACUÑA Room #: REG MARVIN NunezNicholas#: [id number] Admission: 01/13/21 Attend Phys: Abner Pickens DO Discharge: Date of : 77 Report #: [id number] noted and the treatment plan was reviewed with the patient. All current medications, both prescribed and OTC were reviewed and reconciled on the electronic medical record. Tobacco screening was accomplished and smoking cessation was advised when indicated. BMI was noted and diet/exercise modification was recommended for all patients following outside normal parameters. I reviewed with the patient today their responsibilities to safeguard prescription medications, reviewed their responsibility to utilize medications only as prescribed by the physician. They are to seek and receive pain medications only from 1 physician group ( [facility]). They are to use 1 pharmacy and keep the clinic informed if they change pharmacies. Their responsibilities include making followup visits in a timely fashion and to avoid abrupt discontinuation of medication usage. Their responsibilities further include bringing their medications (bottles from the pharmacy with residual pills) to the visit for possible confirmation of pill counts and the patient understands it is their responsibility to submit to random drug screens to ensure both that the medications prescribed are present, and that no other controlled substances are present. All prescriptions provided today were generated electronically. 4. The patient was provided a prescription of Nucynta 50 mg dose 1 tab t.i.d. I have given the patient #90 tablets releasing today, 4 weeks from today, 8 weeks from today, 3-month worth of medication. The patient will continue medication management as long as she is seeing good benefit. She will contact our clinic if she has any questions or concerns. 5. We will see the patient back in followup visit in 3 months. DO CHIDI Oconnor/MARTHA <ELECTRONICALLY SIGNED> By: Abner Pickens DO 01/14/21 0822 0912 [id number] Abner Pickens DO /nt
== END ==
LOC: PAIN 07:25
PROVIDERS: ATTEND Anesthesiology Pain Medicine
DX: M79.671 Pain in right foot (principal); M79.672 Pain in left foot; G89.4 Chronic pain syndrome; Z79.891 Long term (current) use of opiate analgesic; Z79.899 Other long term (current) drug therapy

== ENCOUNTER → 2021-08-04 | Outpatient (CLI) | payer OTHER ==
[~2021-08-04] VITALS: Ht 165.1 cm; Wt 107.4 kg
[~2021-08-04] MED LIST changes: +OLMESARTAN-HCT1 EAC2 PO
[2021-08-04 09:14] VITALS: BP 140/90
--- NOTE | 2021-08-04 09:29 | NUR ---
Pain Clinic Assessment: 1. History of Osteoarthritis: Not Applicable History of Rheumatoid Arthritis: Not Applicable 2. Height: 5 ft. 5 in. 165.1 cm. Weight: 236.8 lb. oz. 107.412 kg. Patient's BMI: 39.4 3. Vital Signs: BP: 140/90 Pulse: 95 Resp: 16 Temp: 02 Sat: 98 ECG Mon: 4. Pain Intensity: 6 5. Fall Risk: Dizziness: N Needs help standing or walking: N Fallen in the last 3 months: N Fall risk comments: 6. Patient on Blood Thinner: None 7. History of Hypertension: Y 8. Opioid Therapy greater than 6 weeks: Y Opiate Contract Signed: 08/24/17 9. Risk Assessment Tool Provided: LOW RISK 0/3 10. Functional Assessment Tool: 11. Recreational Drug Use: Never Drug Type: Tobacco Use: Never Smoker Tobacco Type: Amount or Packs/day: How Many Years: Alcohol Use: Yes Frequency: Weekly Quant: 1-3
--- NOTE | 2021-08-04 13:02 | HPC ---
[facility] [address] [place] [address] PAIN MANAGEMENT CONSULTATION Name: GUADALUPE ACUÑA Room #: REG MARVIN Nunez.#: [id number] Admission: 08/04/21 Attend Phys: Abner Pickens DO Discharge: Date of : 77 Report #: [id number] THIS REPORT FOR: cc: Luciana Bennett MD,Abner Finnegan MD, DO ~ cc: Luciana Bennett MD, Dr. Arvizu DATE OF SERVICE: 08/04/2021 REFERRING PHYSICIAN: Dr. Arvizu. CHIEF COMPLAINT: Bilateral foot pain. HISTORY OF PRESENT ILLNESS: As you know, the patient is a very pleasant 45-year-old female, returning in followup visit for continuation of medication management. She feels the medications are working beneficially for pain control. She is placing pain no greater than 6/10. She has plans to undergo surgery with Dr. Trotter tomorrow to address her foot pain. She believes that after the surgery, she will be able to see some reduction in her overall pain and will be able to wean off of opioid medications. She returns today in followup visit for refill of medications for the next month. As indicated above, the patient is undergoing surgery tomorrow. Postoperative pain will be controlled by Dr. Trotter. When she has been cleared from a surgical standpoint, she will return and will begin weaning opioids as possible. She reports pain no greater than 6/10 today. ALLERGIES: KEFLEX AND BACTRIM. CURRENT MEDICATIONS: See chart. SOCIAL HISTORY: The patient denies tobacco, alcohol or IV or illicit drug use. She is unaccompanied today. IMAGING: No new imaging available. PHYSICAL EXAMINATION: VITAL SIGNS: Blood pressure 140/90, pulse 95, respiratory rate 16 and unlabored. The patient 98% on room air. Height 5 feet 5 inches tall, weight 236.8 pounds, BMI calculated 39.4. GENERAL: Well-developed, well-nourished, well-hydrated 45-year-old female, appearing stated age, placing current pain score at 6/10. HEENT: Normocephalic, atraumatic. Pupils are round. She is wearing a mask in compliance with COVID-19 regulations and hospital policy. EXTREMITIES: Show no clubbing, no cyanosis, no edema. MUSCULOSKELETAL: The patient continues to experience right foot pain for which she is undergoing surgery tomorrow. This is noted with standing from seated [facility] [address] [place] [address] PAIN MANAGEMENT CONSULTATION Name: GUADALUPE ACUÑA Room #: REG CLI [facility]#: [id number] Admission: 08/04/21 Attend Phys: Abner Pickens DO Discharge: Date of : 77 Report #: [id number] position with weightbearing. There is palpatory tenderness on the plantar surface of the foot, negative on the dorsum of the foot. Restriction of supination and pronation of the left foot compared to the right is again noted. Gait is antalgic favoring right lower extremity. Muscle bulk and tone is equal and symmetrical in lower extremities. ASSESSMENT: 1. Bilateral foot pain. 2. Bilateral severe plantar fasciitis, status post left release and continued right pain. 3. Severe plantar fasciitis of right foot. 4. Chronic intractable pain. 5. Opioid dependency. 6. Complicated medication management utilizing scheduled medications. PLAN: 1. The patient returns today in followup visit for refill of the Nucynta 50 mg t.i.d. dose of medication. She is planning for surgery tomorrow to address right foot issues. She has discussed this with her surgeon and they will be controlling her postoperative pain when she is released from their care. She will return and will attempt to wean off the Nucynta. The patient is requiring a refill on the Nucynta today, so that she has medications for the future and for the next month and then will be returning to discuss options for weaning off therapy if possible. I am pleased to see the patient has completed left release with good response. I am hopeful she will see similar with the right surgery being performed tomorrow. 2. We reviewed the fact that opiate medications are being used to provide analgesia adequate to support activities of daily living, not attempting to achieve a specific pain score on the 0-10 Visual Analog Scale. The current opiate medications are providing sufficient analgesia to allow the patient to participate in activities of daily living. The patient is not exhibiting any aberrant behavior suggestive of drug diversion. The patient is not having any adverse reactions to medications. The patient is not suffering from daytime somnolence or mental acuity changes. The patient is managing opiate-induced constipation with appropriate nrds-pri-bklkkkt agents and dietary considerations. The patient was counseled on concern for caution with operating a motor vehicle while using opiate medications. A physical exam was performed and the patient's functional status was evaluated. All patients with back pain were advised against the bed rest greater than 4 days and were advised to return to normal activities. Pain score assessment was noted and the treatment plan was reviewed with the patient. All current medications, both prescribed and OTC were reviewed and reconciled on the electronic medical record. Tobacco screening was accomplished and smoking cessation was advised when indicated. BMI was noted and diet/exercise modification was recommended for all patients following outside normal [facility] [address] [place] [address] PAIN MANAGEMENT CONSULTATION Name: GUADALUPE ACUÑA Room #: REG MARVIN Nunez#: [id number] Admission: 08/04/21 Attend Phys: Abner Pickens DO Discharge: Date of : 77 Report #: [id number] parameters. I reviewed with the patient today their responsibilities to safeguard prescription medications, reviewed their responsibility to utilize medications only as prescribed by the physician. They are to seek and receive pain medications only from 1 physician group ( [facility]). They are to use 1 pharmacy and keep the clinic informed if they change pharmacies. Their responsibilities include making followup visits in a timely fashion and to avoid abrupt discontinuation of medication usage. Their responsibilities further include bringing their medications (bottles from the pharmacy with residual pills) to the visit for possible confirmation of pill counts and the patient understands it is their responsibility to submit to random drug screens to ensure both that the medications prescribed are present, and that no other controlled substances are present. All prescriptions provided today were generated electronically. 3. The patient was provided prescription of Nucynta 50 mg dose 1 tab p.o. t.i.d., I have given the patient #90 tablets to release today. She will obtain these medications and use them only for her chronic pain. They are not to be used postoperatively. 4. We will see the patient back in followup visit for medication management. When she is released from Surgery's care, we will then make adjustments in medication management as warranted. We are hopeful the patient will be doing well by that time. <ELECTRONICALLY SIGNED> By: Abner Pickens DO 08/04/21 1302 1005 1109 Abner Pickens DO /stephan
== END ==
LOC: PAIN 06:56
PROVIDERS: ATTEND Anesthesiology Pain Medicine
DX: M79.671 Pain in right foot (principal); M79.672 Pain in left foot; M72.2 Plantar fascial fibromatosis; G89.29 Other chronic pain; F11.20 Opioid dependence, uncomplicated

== ENCOUNTER → 2021-09-08 | Outpatient (CLI) | payer OTHER ==
[~2021-09-08] VITALS: Ht 165.1 cm; Wt 107.3 kg
[2021-09-08 09:15] VITALS: BP 128/88
--- NOTE | 2021-09-08 09:31 | NUR ---
Pain Clinic Assessment: 1. History of Osteoarthritis: Not Applicable History of Rheumatoid Arthritis: Not Applicable 2. Height: 5 ft. 5 in. 165.1 cm. Weight: 236.6 lb. oz. 107.321 kg. Patient's BMI: 39.4 3. Vital Signs: BP: 128/88 Pulse: 106 Resp: 18 Temp: 02 Sat: 97 ECG Mon: 4. Pain Intensity: 8 5. Fall Risk: Dizziness: N Needs help standing or walking: Y Fallen in the last 3 months: Y Fall risk comments: 6. Patient on Blood Thinner: None 7. History of Hypertension: Y 8. Opioid Therapy greater than 6 weeks: Y Opiate Contract Signed: 08/24/17 9. Risk Assessment Tool Provided: LOW RISK 0/3 10. Functional Assessment Tool: 11. Recreational Drug Use: Never Drug Type: Tobacco Use: Never Smoker Tobacco Type: Amount or Packs/day: How Many Years: Alcohol Use: Yes Frequency: Quant:
--- NOTE | 2021-09-09 08:06 | HPC ---
[facility] [place] [address] PAIN MANAGEMENT CONSULTATION Name: GUADALUPE ACUÑA Room #: REG MARVIN LynnNicholasAdanNicholas#: [id number] Admission: 09/08/21 Attend Phys: Abner Pickens DO Discharge: Date of : 77 Report #: [id number] THIS REPORT FOR: cc: Luciana Bennett MD,Abner Finnegan MD, DO ~ cc: Lennox Arvizu DPM DATE OF SERVICE: 09/08/2021 CHIEF COMPLAINT: Foot pain. HISTORY OF PRESENT ILLNESS: As you know, the patient is a very pleasant 45-year-old female who returns today in followup visit having just completed her right foot surgery with Dr. Trotter. Surgery was performed in Jul. She has been released to begin physical therapy starting tomorrow. She returns today for the beginning of weaning of opioid medications. She has been on Nucynta 50 mg dose 2-3 times a day for pain control prior to surgery. She relied on that medication postoperatively as she could not take the oxycodone provided by the surgery team. She states today pain level of around 8/10, but this has been slowly and progressively improving. She denies any side effects with current medication. She as indicated above begins physical therapy starting tomorrow. She is requesting a slow progressive weaning off of opioid medication over the next couple of months as she begins to participate in physical therapy and improve from a surgical standpoint. ALLERGIES: KEFLEX, BACTRIM. CURRENT MEDICATIONS: See chart. SOCIAL HISTORY: The patient denies tobacco, alcohol, IV, or illicit drug use. She is unaccompanied today. IMAGING: No new imaging available. PHYSICAL EXAMINATION: VITAL SIGNS: Blood pressure 120/88, pulse is 106, respiratory rate 18 and unlabored. The patient is 97% on room air. Height 5 feet 5 inches tall, weight 236.6 pounds, BMI calculated 39.2. GENERAL: Well-developed, well-nourished, well-hydrated class 3, morbidly obese 45-year-old female appearing stated age, pain is rated today around 8/10. HEENT: Normocephalic, atraumatic. Pupils equal, round and responsive. She is wearing a mask in compliance with COVID-19 regulations. EXTREMITIES: Show no clubbing, no cyanosis, no edema. MUSCULOSKELETAL: There is a well-healed surgical scar over the medial aspect of the right ankle. There remains Steri-Strips, but no sutures. The incision appears to be healing well. There is some palpatory tenderness around the area, [address] [address] PAIN MANAGEMENT CONSULTATION Name: GUADALUPE ACUÑA Room #: REG MARVIN Buitrago#: [id number] Admission: 09/08/21 Attend Phys: Abner Pickens DO Discharge: Date of : 77 Report #: [id number] but no specific pain generators. ASSESSMENT: 1. Right foot pain, status post surgery. 2. Bilateral foot pain. 3. Severe plantar fasciitis. 4. Chronic intractable pain. 5. Opioid dependency. 6. Complicated medication management utilizing scheduled medications. PLAN: 1. The patient returns today in followup visit having completed surgery of the right foot. She has been released from Dr. Fuentes's care as of of last week. She is going to be starting physical therapy tomorrow. She returns today to continue Nucynta treatment and she is finding benefit with that medication for the current pain. She is denying any side effects with its use. She is requesting refills to be provided today with the slow progressive weaning off the medication over the next 3 months. We reviewed the fact that opiate medications are being used to provide analgesia adequate to support activities of daily living, not attempting to achieve a specific pain score on the 0-10 Visual Analog Scale. The current opiate medications are providing sufficient analgesia to allow the patient to participate in activities of daily living. The patient is not exhibiting any aberrant behavior suggestive of drug diversion. The patient is not having any adverse reactions to medications. The patient is not suffering from daytime somnolence or mental acuity changes. The patient is managing opiate-induced constipation with appropriate [id number] agents and dietary considerations. The patient was counseled on concern for caution with operating a motor vehicle while using opiate medications. A physical exam was performed and the patient's functional status was evaluated. All patients with back pain were advised against the bed rest greater than 4 days and were advised to return to normal activities. Pain score assessment was noted and the treatment plan was reviewed with the patient. All current medications, both prescribed and OTC were reviewed and reconciled on the electronic medical record. Tobacco screening was accomplished and smoking cessation was advised when indicated. BMI was noted and diet/exercise modification was recommended for all patients following outside normal parameters. I reviewed with the patient today their responsibilities to safeguard prescription medications, reviewed their responsibility to utilize medications only as prescribed by the physician. They are to seek and receive pain medications only from 1 physician group ([facility]). They are to use 1 pharmacy and keep the clinic informed if they change pharmacies. Their responsibilities include making followup visits in a timely fashion and to avoid [address] [address] PAIN MANAGEMENT CONSULTATION Name: GUADALUPE ACUÑA Room #: REG MARVIN Buitrago#: [id number] Admission: 09/08/21 Attend Phys: Abner Pickens DO Discharge: Date of : 77 Report #: [id number] abrupt discontinuation of medication usage. Their responsibilities further include bringing their medications (bottles from the pharmacy with residual pills) to the visit for possible confirmation of pill counts and the patient understands it is their responsibility to submit to random drug screens to ensure both that the medications prescribed are present, and that no other controlled substances are present. All prescriptions provided today were generated electronically. 2. The patient was provided prescription of Nucynta 50 mg dose 1 tab p.o. t.i.d., #90 to release today. This is one month worth of medication. 3. The patient was provided a prescription for Nucynta 50 mg 1 tab p.o. b.i.d. to release in September a reduction of 1 tablet per day. This is part of the weaning process. A prescription was sent via e-scribe to local pharmacy reflecting the #60 tablets. 4. The patient was provided a refill of Nucynta 50 mg dose 1 tab per day #30. This will be released in October. By that time, I am hopeful the patient will no longer need the medication or only transiently. Prescription was sent via e-scribe to local pharmacy. 5. We will see the patient back in followup visit on an as needed basis. We wish her luck with recovery from her surgery. The weaning of the medication should go without complication as we are weaning over 3 months. There should be no withdrawal effects. <ELECTRONICALLY SIGNED> By: Abner Pickens DO 09/09/21 0806 [id number] Abner Pickens DO /nt
== END ==
LOC: PAIN 07:49
PROVIDERS: ATTEND Anesthesiology Pain Medicine
DX: M79.671 Pain in right foot (principal); M79.672 Pain in left foot; G89.29 Other chronic pain; F11.20 Opioid dependence, uncomplicated; Z88.8 Allergy status to other drugs, medicaments and biological substances